=== PATIENT | female | born 1940 | race Caucasian/White ===

== ENCOUNTER 2022-02-20 17:53 | Outpatient (CLI) | payer OTHER, SELFPAY ==
--- NOTE | 2022-02-20 18:30 | CRLHL7_ITS ---
For Patients: As a result of the Century Cures Act, medical imaging exams and procedure reports are released immediately into your electronic medical record. You may view this report before your referring provider. If you have questions, please contact your health care provider. BILATERAL SCREENING MAMMOGRAM WITH COMPUTER-AIDED DETECTION AND TOMOSYNTHESIS TECHNIQUE: CC and MLO views were obtained. These mammographic images have been obtained using full-field digital technique. These mammographic images were interpreted with the benefit of computer-aided detection. Breast Tomosynthesis was used in this interpretation. COMPARISON FILM: 09/29/20, 09/10/19, 08/26/18. FINDINGS: There are scattered areas of fibroglandular density IMPRESSION: There is no radiographic evidence for malignancy. ASSESSMENT: BI-RADS Category 1: Negative RECOMMENDATION: Routine screening mammogram in 1 year. A lay language report of this examination will be provided to the patient. Demond Cortes M.D. Diagnostic Radiologist [email or web address] Transcribed: 3:56 pm DW/Dictated by: Demond Cortes MD @ 02/21/2022 12:14:00 PM (Electronically Signed)
== END 2022-02-20 17:54 | disposition home or self-care (01) ==
PROVIDERS: PCP Family Medicine; Visit Provider Family Medicine
DX: Z12.31 Encounter for screening mammogram for malignant neoplasm of breast (principal)
CPT/HCPCS: 77063; 77067

== ENCOUNTER 2022-08-24 13:07 | Outpatient (CLI) | payer OTHER, SELFPAY | END 2022-08-24 13:08 | disposition home or self-care (01) | PROVIDERS: PCP Family Medicine; Visit Provider Family Medicine | DX: Z00.00 Encounter for general adult medical examination without abnormal findings (principal); E78.5 Hyperlipidemia, unspecified; I10 Essential (primary) hypertension; R20.2 Paresthesia of skin | CPT/HCPCS: 80053; 82607; 82746 ==

== ENCOUNTER 2022-11-22 11:54 | Outpatient (CLI) | payer OTHER, SELFPAY | END 2022-11-22 11:55 | disposition home or self-care (01) | PROVIDERS: PCP Family Medicine; Visit Provider Family Medicine | DX: R20.2 Paresthesia of skin (principal); E78.5 Hyperlipidemia, unspecified; I10 Essential (primary) hypertension | CPT/HCPCS: 82306; 82310; 82607; 84443 ==

== ENCOUNTER 2023-02-25 09:01 | Outpatient (CLI) | payer OTHER, SELFPAY ==
--- NOTE | 2023-02-25 09:15 | CRLHL7_ITS ---
For Patients: As a result of the Cures Act, medical imaging exams and procedure reports are released immediately into your electronic medical record. You may view this report before your referring provider. If you have questions, please contact your health care provider. BILATERAL SCREENING MAMMOGRAM WITH COMPUTER-AIDED DETECTION AND TOMOSYNTHESIS TECHNIQUE: CC and MLO views were obtained. These mammographic images have been obtained using full-field digital technique. These mammographic images were interpreted with the benefit of computer-aided detection. Breast Tomosynthesis was used in this interpretation. COMPARISON FILM: 02/20/22, 09/29/20, 09/10/19. FINDINGS: There are scattered areas of fibroglandular density IMPRESSION: There is no radiographic evidence for malignancy. ASSESSMENT: BI-RADS Category 1: Negative RECOMMENDATION: Routine screening mammogram in 1 year. A lay language report of this examination will be provided to the patient. JOSEMANUEL MEYERS MD Diagnostic/Nuclear Medicine Radiologist [email or web address] GILBERTO/bhe be/Dictated by: Josemanuel Meyers MD @ 02/25/2023 10:41:00 AM (Electronically Signed)
== END 2023-02-25 09:02 | disposition home or self-care (01) ==
LOC: MAMMO 09:02
PROVIDERS: PCP Family Medicine; Visit Provider Family Medicine
DX: Z12.31 Encounter for screening mammogram for malignant neoplasm of breast (principal)
CPT/HCPCS: 77063; 77067

== ENCOUNTER 2023-09-16 13:21 | Outpatient (RCR) | payer MEDICARE, SELFPAY ==
--- NOTE | 2023-09-16 15:03 | PT.OPE ---
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 She is here today with her Moustapha. Pt has noticed bumping into doorway on occasion. She denies lightheadedness and room spinning dizziness. She is not able to describe her dizziness for me today, but thinks her symptoms are similar to the last time she had BPPV about 5 years ago. Denies N/V, ringing in ears. Denies LOB. Pt is scheduled for R cataract surgery tomorrow, L eye in 2 weeks. Date of Last Physician Visit 09/10/23 Current Work Status Retired Precautions Therapy Limitations/Systems Review Not Limited Objective Other/Pertinent Objective Cervical ROM Extension - 41 Flexion - 43 R/L Sidebend - 15/11 R/L Rotation - 47/47 Oculomotor Testing Gaze Stabilization: negative Smooth Pursuits: negative Saccades: negative Convergence: negative Head Shake: negative Head Thrust: negative Positional Testing -R Gilliam-Hallpike: negative -L Crissy-Hallpike: negative -R Roll: negative -L Roll: negative Modified Romberg -Eyes open, firm surface: normal sway -Eyes closed, firm surface: slightly increased sway -Eyes open, foam surface: normal sway -Eyes closed, foam surface: slightly increased sway Blood Pressure Sittin/73 mmHg Standin/87 mmHg Assessment Assessment/Impression Jenny is a very pleasant 83 year old female who presents to our clinic for evaluation of dizziness. Differential diagnosis is broad, including though was not limited to: peripheral processes (BPPV, vestibular neuritis, labyrinthitis, Meniere?s disease), SYSTEMS DESIGNER process (CVA, TIA, vascular dissection), cardiac arrhythmia, ACS, hypertensive urgency, among others. Based on the above history and exam, her symptoms are most suspicious and consistent with a peripheral process, with highest suspicion for cervicogenic dizziness. Other etiologies for dizziness were considered, but felt to be less likely at this time. Because pt is unable to describe the quality of her dizziness, and with positional testing negative this date, a diagnosis of BPPV at this time is unlikely. With her lack of cervical rotation and sidebeding ROM, along with spasms in B UTs, I suspect that she is experiencing cervicogenic dizziness, or a visual balance deficit. If her symptoms are due to muscle tightness, symptoms should improve with stretching to affected muscles groups. If vision is the cause, i would expect Jenny to be less symptomatic following her cataract surgeries. We will assist Jenny in scheduling a follow-up appointment next week to further investigate symptoms. Primary Functional Limitations Walking Plan of Care Rehabilitation Potential Good Physical Therapy Goals STG - To be completed in 2-3 weeks: 1. Pt will report reduction in dizziness frequency and intensity so that they may return to normal mobility with minimal bouts of dizziness. LTG - To be completed in 4 weeks: 1. Pt will report ability to walk through doorways in home without sensation of dizziness . 2. Pt will score 120/120 on mCTSIB as indication of improved vestibular component of balance to reduce risk of falls. 3. Pt will report absence of dizziness with all positional testing so that they may perform all activities with similar head/neck positions including rolling over in bed, washing hair in shower without onset of dizziness. Treatment Plan/Direct Interventions Canalith Repositioning,Heat, Joint Mobilization,Manual Therapy,Neuromuscular Re-ed, Therapeutic Exercises Frequency/Duration 1/week for 4 weeks Patient Will Be Discharged From Therapy Completion of LTG(s),Skills Plateau,Independent w/HEP, Independently Progressing Evaluation Billing Untimed Code Treatment Minutes 40 PT Eval No Charge No Complexity Low Certification Information Initial Certification Date 09/16/23 Ending Certification Date 12/15/23 Provider Signature Required Yes Provider Signature Shows Agreement With POC & Medical Necessity Physician NPI Number Write NPI# Here Physician Comment/Change : Physician Signature & Date Requested Please Sign/Date Here
== END 2023-12-02 08:49 | disposition home or self-care (01) ==
PROVIDERS: PCP Family Medicine; Visit Provider Physician Assistant Medical
DX: R42 Dizziness and giddiness (principal); Z51.89 Encounter for other specified aftercare
CPT/HCPCS: 97140; 97161

== ENCOUNTER 2023-10-17 14:08 | Outpatient (CLI) | payer MEDICARE, SELFPAY | END 2023-10-17 14:09 | disposition home or self-care (01) | LOC: FRMREF 14:09 | PROVIDERS: PCP Family Medicine; Visit Provider Family Medicine | DX: I10 Essential (primary) hypertension (principal) | CPT/HCPCS: 80053 ==

== ENCOUNTER 2024-06-22 09:53 | Outpatient (CLI) | payer MEDICARE, SELFPAY ==
--- NOTE | 2024-06-22 10:15 | CRLHL7_ITS ---
For Patients: As a result of the Century Cures Act, medical imaging exams and procedure reports are released immediately into your electronic medical record. You may view this report before your referring provider. If you have questions, please contact your health care provider. INDICATION: BILATERAL SCREENING MAMMOGRAM, ASYMPTOMATIC 84 Y/O FEMALE COMPARISON: 02/25/23, 02/20/22, 09/29/20 TECHNIQUE: CC and MLO views were obtained. These mammographic images have been obtained using full-field digital technique. These mammographic images were interpreted with the benefit of computer aided detection and tomosynthesis. BREAST COMPOSITION: There are scattered areas of fibroglandular density. FINDINGS: No suspicious findings. ASSESSMENT: BI-RADS 1 Negative RECOMMENDATION: Annual screening mammogram. A lay language report of this examination will be provided to the patient. Dictated by: Demond Cortes MD @ 06/29/2024 13:37:34 (Electronically Signed)
== END 2024-06-22 09:54 | disposition home or self-care (01) ==
LOC: MAMMO 09:56
PROVIDERS: PCP Family Medicine; Visit Provider Family Medicine
DX: Z12.31 Encounter for screening mammogram for malignant neoplasm of breast (principal)
CPT/HCPCS: 77063; 77067

== ENCOUNTER 2024-11-18 14:10 | Outpatient (CLI) | payer MEDICARE, SELFPAY | END 2024-11-18 14:11 | disposition home or self-care (01) | PROVIDERS: PCP Family Medicine; Visit Provider Family Medicine | DX: Z00.00 Encounter for general adult medical examination without abnormal findings (principal); R20.2 Paresthesia of skin | CPT/HCPCS: 80053; 82607 ==

== ENCOUNTER 2024-11-27 10:33 | Outpatient (CLI) | payer MEDICARE, SELFPAY ==
--- NOTE | 2024-11-27 11:00 | CRLHL7_ITS ---
For Patients: As a result of the Century Cures Act, medical imaging exams and procedure reports are released immediately into your electronic medical record. You may view this report before your referring provider. If you have questions, please contact your health care provider. Indication: Pulmonary nodule Technique: Noncontrast CT chest Please note that all CT scans at this facility use dose modulation, iterative reconstruction, and/or weight-based dosing when appropriate to reduce radiation dose to as low as reasonably achievable. Comparison: Outside chest x-ray not available Findings: The visualized thyroid is within normal limits. Vascular calcifications are present. No mediastinal, hilar or axillary adenopathy. No pleural or pericardial effusion. Normal adrenal glands. Water attenuation intrahepatic cysts are present which measure up to 4.8 cm. Mild curvature of the mid and upper thoracic spine. No vertebral body compression fracture. 4 millimeter nodule in the medial aspect of the right upper lobe, 3/14. Subpleural nodule anterior right lung measures 3 millimeters, 3/56. Additional subpleural nodule right lung measures 3 millimeters, 3/62. Lingular nodule measures 3.5 millimeters, 3/55. 8.8 millimeter nodule in the lingula, 3/50. Incidental bleb within the left lower lobe measures 1.1 cm. Impression: 8.[address] PET recommended versus three-month follow-up low-dose CT. Please note that all CT scans at this facility use dose modulation, iterative reconstruction, and/or weight-based dosing when appropriate to reduce radiation dose to as low as reasonably achievable. Dictated by Demond Cortes MD @ 11/27/2024 12:50:13 PM (Electronically Signed)
== END 2024-11-27 10:34 | disposition home or self-care (01) ==
LOC: CT 10:34
PROVIDERS: PCP Family Medicine; Visit Provider Family Medicine
DX: R93.89 Abnormal findings on diagnostic imaging of other specified body structures (principal); R91.8 Other nonspecific abnormal finding of lung field
CPT/HCPCS: 71250

== ENCOUNTER 2025-02-26 09:44 | Outpatient (CLI) | payer MEDICARE, SELFPAY ==
--- NOTE | 2025-02-26 10:00 | CRLHL7_ITS ---
For Patients: As a result of the Century Cures Act, medical imaging exams and procedure reports are released immediately into your electronic medical record. You may view this report before your referring provider. If you have questions, please contact your health care provider. Indication: Follow up nodule Technique: Noncontrast CT chest Please note that all CT scans at this facility use dose modulation, iterative reconstruction, and/or weight-based dosing when appropriate to reduce radiation dose to as low as reasonably achievable. Comparison: 11/27/2024 Findings: Stable intrahepatic cysts. Vascular calcifications. No adenopathy. Visualized thyroid is within normal limits. 9 millimeter lingular nodule is stable, 50 2 millimeter nodule in the right lower lobe medially is similar, . Stable 3 millimeter subpleural nodule right middle lobe, . Tiny ill-defined nodular densities in the right lower lobe are unchanged, measuring up to 4 millimeters, . No fracture. Scarring in both lung bases. Impression: Stable bilateral pulmonary nodules. Please note that all CT scans at this facility use dose modulation, iterative reconstruction, and/or weight-based dosing when appropriate to reduce radiation dose to as low as reasonably achievable. Dictated by Demond Cortes MD @ 02/26/2025 12:26:09 PM (Electronically Signed)
== END 2025-02-26 09:45 | disposition home or self-care (01) ==
LOC: CT 09:45
PROVIDERS: PCP Family Medicine; Visit Provider Family Medicine
DX: R91.1 Solitary pulmonary nodule (principal); R91.8 Other nonspecific abnormal finding of lung field
CPT/HCPCS: 71250